=== PATIENT | male | born 1945 | race Caucasian/White ===

== ENCOUNTER 2019-08-16 10:22 | Outpatient (CLI) | payer MEDICARE, SELFPAY ==
--- NOTE | 2019-08-16 10:28 | ECG_ITS ---
Measurements Intervals [place] Rate: 79 P: 31 PA: 165 QRS: 59 QRSD: 103 T: 65 QT: 368 QTc: 423 Interpretive Statements SINUS RHYTHM BASELINE ARTIFACT- II, III, AVF NORMAL ECG Electronically Signed On 08-16-2019 11:23:19 CDT by Demar Lozano D.O.
[2019-08-16 11:28] LABS: Blood Urea Nitrogen 24 mg/dL (9-20); Calcium 9.7 mg/dL (8.4-10.2); Carbon Dioxide 26 mmol/L (22-30); Chloride 103 mmol/L (98-107); Estimated Glomerular Filt Rate 50; Glucose 254 mg/dL (75-110); Potassium 4.1 mmol/L (3.4-5.0); Sodium 139 mmol/L (137-145)
== END 2019-08-16 10:23 | disposition home or self-care (01) ==
PROVIDERS: Anesthesiology; PCP Family Medicine; Visit Provider Urology
DX: Z01.818 Encounter for other preprocedural examination (principal); I10 Essential (primary) hypertension; E11.9 Type 2 diabetes mellitus without complications; N21.0 Calculus in bladder
CPT/HCPCS: 36415; 80048; 87077; 87086; 87088; 87186; 93005

== ENCOUNTER 2019-08-24 02:19 | Day surgery (SDC) | payer MEDICARE, SELFPAY ==
[2019-08-12 10:07] VITALS: BMI 23.1
[2019-08-24] VITALS (7 sets, daily range): BP systolic 89–149; BP diastolic 51–97; PULSE 63–78; RESP 11–18; TEMP 36.2–36.3; O2SAT 96–100
--- NOTE | 2019-08-24 09:19 | WPDHPUPDATE1 ---
History and Physical Update Update Date/Time: 08/24/19 09:19 History and Physical has been reviewed, including an updated exam of the patient. There are NO changes in the patient's condition. Risks, benefits, and alternatives have been discussed and questions answered. Patient agrees to proceed with procedure.
--- NOTE | 2019-08-24 09:34 | WPDANESEPPF ---
Anes - Initial Pre Proc Eval Procedure: Operation Date: 08/24/19 13:30 Proposed Procedures p Cystoscopy, Extraction of Bladder Stone - Maury Blanca MD s Holmium Laser - Maury Blanca MD Date/Time: 08/24/19 09:34 Surgeon: Maury Blanca MD Pre Op Diagnosis: Bladder Calculi Patient Data Age: 73 Gender: M Height: 6 ft 3 in Weight: 83.91 kg Allergies Allergy/AdvReac Type Severity Reaction Status Date / Time No Known Allergies Allergy Verified 08/12/19 09:59 Home Medications Medication Instructions Recorded Confirmed Type aspirin 81 mg PO DAILY 08/12/19 08/12/19 History bupropion HCl 150 mg PO BID 08/12/19 08/12/19 History buspirone 5 mg PO BID 08/12/19 08/12/19 History hydrochlorothiazide 12.5 mg PO DAILY 08/12/19 08/12/19 History lisinopril 20 mg PO BID 08/12/19 08/12/19 History metformin 500 mg PO BID 08/12/19 08/12/19 History simvastatin 40 mg PO DAILY 08/12/19 08/12/19 History Patient hx anesthesia problems: post op nausea/vomiting Family hx anesthesia problems: none PMFSH Past Medical History Medical History (Updated 08/24/19 @ 09:29 by Darron Membreno MD) Anxiety Arthritis Depression Diabetes Hyperlipidemia Hypertension Social History Social History Gender identity (if verbalized by the patient): Male Anes - Eval Final PreProcedure Day of Procedure 08/24/19 09:34 Patient weight: normal Heart: regular rate and rhythm Lungs: clear to auscultation Airway: Mallampati scale class III Neurological: alert and oriented Last oral intake: >/= 8 hours ASA classification: III Emergent: no Anesthetic plan: proceed Anesthesia type and monitoring: general LMA and standard monitoring Informed Consent: The patient's anesthetic plan and its attendant risks and benefits were discussed with the patient/family/POA. Questions were solicited and answers provided to the satisfaction of the patient/family/POA.
[2019-08-24 09:40] LABS: Glucose Point of Care 166 (65-105)
[2019-08-24] MEDS: LACTATED RINGERS 1,000 ML 30 ML IV CONT (09:40)
[2019-08-24] MEDS: ONDANSETRON INJ 4 MG/2 ML VIAL IV PUSH (09:42)
[2019-08-24] MEDS: ceFAZolin 2 GM/D5W 50 ML 2 GM/50 ML BAG IVPB (09:55)
[2019-08-24] MEDS: LIDOCAINE HCL 2% GEL UROJET 10 ML PKG MUCOUS MEM (10:20)
--- NOTE | 2019-08-24 10:58 | P.OP_ITS ---
Procedure Note - Detailed Date of procedure: 08/24/19 Pre-op diagnosis: Bladder Calculi Post-op diagnosis: same Procedure performed: Cystoscopy with holmium laser of 2 large bladder calculi, Anglin placement Description of procedure: Patient was taken to the operative suite and correctly identified. Once general anesthesia was obtained he was placed in the dorsal lithotomy position and prepped and draped in the usual sterile fashion. Twenty- two Slovenian scope was inserted in the bladder. He has some mild lateral lobe hypertrophy. Does not appear overly obstructive nature. Upon entering the bladder there is no tumors present. He has 2 large stones present each measuring close to 2 to 2-1/2 cm each. Using a large holmium laser fiber we lasered the stone into multiple pieces along with dust particles. All the large pieces were retrieved and sent for analysis. There was good hemostasis. 2% viscous lidocaine was inserted urethra. Sixteen [place]ian Anglin was inserted and inflated with 10 cc of sterile water. He can remove the Anglin in the morning. He will then resume intermittent catheterization. Will have follow-up in 3 months time with a PSA Anesthesia: GLMA Surgeon: Maury Blanca MD Estimated blood loss (mL): 0 Drains: Yes Packing: No Pathology: yes Complications: No immediate complications Condition: stable Disposition: PACU
[2019-08-24 12:01] LABS: Glucose Point of Care 143 (65-105)
== END 2019-08-24 12:47 | disposition home or self-care (01) ==
PROVIDERS: PCP Family Medicine; Visit Provider Urology
PROC: 0TCB8ZZ Extirpation of Matter from Bladder, Via Natural or Artificial Opening Endoscopic (ICD-10-PCS; CPT 52352; principal; 2019-08-24 13:30)
PROC: (CPT 52317; 2019-08-24 13:30)
DX: N21.0 Calculus in bladder (principal); I10 Essential (primary) hypertension; E78.5 Hyperlipidemia, unspecified; E11.9 Type 2 diabetes mellitus without complications; M19.90 Unspecified osteoarthritis, unspecified site; F41.8 Other specified anxiety disorders; Z79.82 Long term (current) use of aspirin; Z79.84 Long term (current) use of oral hypoglycemic drugs
CPT/HCPCS: 52317; 36415; 80048; 82365; 87077; 87086; 87088; 87186; 88300; 93005; A9270; J0690; J2250; J2405; J2704; J3010; J7120